=== PATIENT | female | born 1985 | race Caucasian/White ===

== ENCOUNTER 2020-02-01 07:39 | Emergency (ER) | payer MEDICAID ==
[2020-02-01] MEDS ORDERED: HYDROmorphone 1 MG/ML CARPUJECT IVP STA ×2 (07:55→08:55)
[2020-02-01] MEDS ORDERED: ONDANSETRON 4 MG/2 ML VIAL IVP STA (07:55)
[2020-02-01] MEDS ORDERED: SODIUM CHLORIDE 0.9% 1,000 ML IV STA (07:55)
--- NOTE | 2020-02-01 08:00 | ED Physician Documentation ---
PD HPI ABD PAIN - Stated complaint Stated Complaint: ABD PX - History obtained from History obtained from: Patient - Additional information Additional information: 34-year-old woman with history of hysterectomy and left oophorectomy for endo metriosis, occasional heroin use (smokes it, never injects). She also has spinal stenosis and chronic back pain for which she takes gabapentin, Flexeril, ibuprofen, and Tylenol daily. She developed upper abdominal pain last night, gradual in onset. She felt like it was gas, tried Nessa-Farrell twice without relief. Now radiates to the lower abdomen. It is associated with vomiting and diarrhea. No fevers. Review of Systems Ten Systems: 10 systems reviewed and negative Constitutional: denies: Fever, Chills Cardiac: reports: Reviewed and negative Respiratory: reports: Reviewed and negative PD PAST MEDICAL HISTORY - Past Medical History Past Medical History: Yes DUPLEX TRIMMER: Endometriosis Musculoskeletal: Chronic back pain - Past Surgical History Past Surgical History: Yes /DUPLEX TRIMMER: Hysterectomy, Oophrectomy (left, still has right ovary) - Present Medications Home Medications: Ambulatory Orders Medication Instructions Recorded Confirmed Cyclobenzaprine HCl 5 mg PO BID 02/01/20 02/01/20 Dicyclomine HCl 20 mg PO QID PRN #15 tablet 02/01/20 Gabapentin 800 mg PO TID 02/01/20 02/01/20 Ibuprofen [Advil] 400 mg PO BID 02/01/20 02/01/20 Omeprazole 20 mg PO DAILY #30 capsule. 02/01/20 Ondansetron Odt [Zofran] 4 mg TL Q6H PRN #10 tablet 02/01/20 hydrOXYzine pamoate [Hydroxyzine 25 mg PO TID 02/01/20 02/01/20 Pamoate] - Allergies Allergies/Adverse Reactions: Allergies Allergy/AdvReac Type Severity Reaction Status Date / Time No Known Drug Allergies Allergy Verified 02/01/20 07:59 - Social History Does the pt have substance abuse?: Yes Substance Use and Type: Heroin - Family History Family history: reports: Non contributory PD ED PE NORMAL - Vitals Vital signs reviewed: Yes - General General: Alert and oriented X 3, Other (uncomfortable) - HEENT HEENT: PERRL, EOMI - Neck Neck: Supple, no meningeal sign, No bony TTP - Cardiac Cardiac: No murmur, Other (mildly tach, reg) - Respiratory Respiratory: No respiratory distress, Clear bilaterally - Abdomen Abdomen: Other (diminished bowel tones, not absent, Tender RLQ>epigastrium) - Back Back: No CVA TTP, No spinal TTP - Derm Derm: Normal color, Warm and dry - Extremities Extremities: No edema, No calf tenderness / cord - Neuro Neuro: Alert and oriented X 3, Normal speech Results - Vitals Vitals: Vital Signs - 24 hr 02/01/20 02/01/20 02/01/20 08:00 08:23 08:56 Temperature 36.8 C Heart Rate 87 88 89 Respiratory 22 20 18 Rate Blood Pressure 112/57 L 120/69 112/57 L O2 Saturation 98 98 97 Oxygen O2 Source Room air - Labs Labs: Laboratory Tests 02/01/20 02/01/20 02/01/20 07:55 07:55 09:10 WBC 7.1 RBC 4.78 Hgb 14.1 Hct 42.2 MCV 88.3 MCH 29.5 MCHC 33.4 RDW 13.1 Plt Count 266 MPV 9.7 Neut # (Auto) 4.6 Lymph # (Auto) 1.9 Rains # (Auto) 0.4 Eos # (Auto) 0.2 Baso # (Auto) 0.0 Absolute Nucleated RBC 0.00 Nucleated RBC % 0.0 Sodium 139 Potassium 3.8 Chloride 105 Carbon Dioxide 25 Anion Gap 9.0 BUN 10 Creatinine 0.6 Estimated GFR (MDRD) 114 Glucose 106 H Calcium 8.6 Total Bilirubin 0.4 AST 13 ALT 12 Alkaline Phosphatase 47 Total Protein 6.8 Albumin 3.7 Globulin 3.1 Albumin/Globulin Ratio 1.2 Lipase 35 Urine Color YELLOW Urine Clarity CLEAR Urine pH 8.5 H Ur Specific Lamar 1.010 Urine Protein NEGATIVE Urine Glucose (UA) NEGATIVE Urine Ketones NEGATIVE Urine Occult Blood NEGATIVE Urine Nitrite NEGATIVE Urine Bilirubin NEGATIVE Urine Urobilinogen 0.2 (NORMAL) Ur Leukocyte Esterase NEGATIVE Ur Microscopic Review NOT INDICATED Urine Culture Comments NOT INDICATED - Rads (name of study) CT A/P Radiology: EMP read contemporaneously (Consistent with mild or low-grade colitis, appendix not definitively seen but no secondary signs of appendicitis.) PD MEDICAL DECISION MAKING - ED course ED course: 34-year-old woman presents with diffuse abdominal pain, some concern for appendicitis based on exam but CT without signs of appendicitis, also white count mid normal. Feeling better after divided doses of meds and especially got some relief with a GI cocktail suggesting some element of gastritis on top of the mild colitis seen on CT. Departure - Departure Disposition: 01 Home, Self Care Clinical Impression: Gastroenteritis Condition: Good Record reviewed to determine appropriate education?: Yes Instructions: ED Gastroenteritis Viral Prescriptions: Dicyclomine HCl 20 mg PO QID PRN #15 tablet PRN Reason: Abdominal Pain Omeprazole 20 mg PO DAILY #30 capsule. Ondansetron Odt [Zofran] 4 mg TL Q6H PRN #10 tablet PRN Reason: Nausea / Vomiting Comments: Return in 24 hours if not better, anytime if worsening. If symptoms are persistent or recurrent talk with your doctor about upper and lower endoscopies for reevaluation.
[2020-02-01 08:03] LABS: BASOPHILS % (AUTO) 0.4 %; EOSINOPHILS # (AUTO) 0.2 10^3/uL (0.0-0.7); EOSINOPHILS % (AUTO) 2.7 %; HGB - HEMOGLOBIN 14.1 g/dL (12.0-16.0); LYMPHOCYTES # (AUTO) 1.9 10^3/uL (1.5-3.5); LYMPHOCYTES % (AUTO) 26.7 %; MEAN CORPUSCULAR HEMOGLOBIN 29.5 pg (27.0-31.0); MEAN CORPUSCULAR HGB CONC 33.4 g/dL (32.0-36.0); MEAN CORPUSCULAR VOLUME 88.3 fL (81.0-99.0); MEAN PLATELET VOLUME 9.7 fL (7.9-10.8); MONOCYTES # (AUTO) 0.4 10^3/uL (0.0-1.0); NEUTROPHILS # (AUTO) 4.6 10^3/uL (1.5-6.6); NEUTROPHILS % (AUTO) 63.9 %; PLT - PLATELET COUNT 266 10^3/uL (130-450); RED BLOOD COUNT 4.78 10^6/uL (4.20-5.40); RED CELL DISTRIBUTION WIDTH 13.1 % (12.0-15.0); WHITE BLOOD COUNT 7.1 x10^3/uL (4.8-10.8)
[2020-02-01 08:23] LABS: ALBUMIN 3.7 g/dL (3.2-5.5); ALBUMIN/GLOBULIN RATIO 1.2 (1.0-2.2); BILIRUBIN,TOTAL 0.4 mg/dL (0.2-1.0); CALCIUM 8.6 mg/dL (8.5-10.3); CREATININE 0.6 mg/dL (0.4-1.0); TOTAL PROTEIN 6.8 g/dL (6.7-8.2)
[2020-02-01] MEDS ORDERED: IOVERSOL 320 100 ML VIAL IVP ONE ×2 (08:32→08:50)
--- NOTE | 2020-02-01 09:06 | CT Report ---
PROCEDURE: Abdomen/Pelvis W INDICATIONS: IV only, upper and RLQ pain CONTRAST: IV CONTRAST: Optiray 320 ml: 100 PO CONTRAST: *NO PO CONTRAST TECHNIQUE: After the administration of 100 mL of intravenous contrast, 5 mm thick sections acquired from the jessica phragms to the symphysis. 5 mm thick coronal and sagittal reformats were acquired. For radiation do se reduction, the following was used: automated exposure control, adjustment of mA and/or kV accordi ng to patient size. COMPARISON: None. FINDINGS: Image quality: Excellent. ABDOMEN: Lung bases: Lung bases are clear. Heart size is normal. Solid organs: Liver and spleen are normal in size and enhancement. Gallbladder is decompressed but otherwise unremarkable. Biliary system is non dilated. Pancreas enhances normally. No adrenal nodu les. Kidneys demonstrate normal size and enhancement, without hydronephrosis. Peritoneum and bowel: There is mild circumferential bowel wall thickening of the distal transverse c olon and descending colon with subtle pericolonic stranding. The appendix is not definitively visuali zed, but no secondary findings for acute inflammation are noted in the right lower quadrant. Remainde r of the bowel loops demonstrate normal wall thickness and caliber. No free fluid or air. Nodes and vessels: No retroperitoneal or mesenteric adenopathy by size criteria. Aorta and inferior vena cava are normal in size. Miscellaneous: No ventral hernias. Small fat-containing umbilical hernia without acute inflammation. PELVIS: Genitourinary: Bladder wall thickness is normal. Right ovarian cyst/follicle. Miscellaneous: No inguinal hernias or adenopathy. Bones: No suspicious bony lesions. No vertebral body compression fractures. IMPRESSION: 1. Minimal circumferential bowel wall thickening of the distal transverse colon and descending colon with subtle pericolonic stranding suspected to represent colitis either inflammatory versus infectiou s in etiology. Otherwise, no acute abnormalities identified in the abdomen or pelvis. 2. The appendix is not definitively visualized; however, no secondary findings for acute inflammation are noted in the right lower quadrant. Reviewed by: Nate Crum MD on 02/01/2020 9:05 AM PDT Approved by: Nate Crum MD on 02/01/2020 9:05 AM PDT Station ID: [id number]
[2020-02-01 09:25] LABS: BILIRUBIN,URINE NEGATIVE (NEGATIVE); CLARITY,URINE CLEAR (CLEAR); GLUCOSE, URINE (UA) NEGATIVE (NEGATIVE); KETONES,URINE (UA) NEGATIVE (NEGATIVE); LEUKOCYTE ESTERASE, URINE NEGATIVE (NEGATIVE); NITRITE,URINE NEGATIVE (NEGATIVE); OCCULT BLOOD,URINE NEGATIVE (NEGATIVE); PH,URINE 8.5 PH (5.0-7.5); PROTEIN,URINE NEGATIVE (NEGATIVE); UROBILINOGEN,URINE 0.2 (NORMAL) E.U./dL (NORMAL)
[2020-02-01] MEDS ORDERED: LIDOCAINE VISCOUS 2% 15 ML UDC MM STA (09:30)
[2020-02-01] MEDS ORDERED: MAG HYDROX/AL HYDROX/SIMETH 30 ML UDC PO STA (09:30)
[2020-02-01] MEDS ORDERED: PANTOPRAZOLE 40 MG VIAL IVP STA (09:56)
[2020-02-01 13:42] VITALS: BP 109/68
== END 2020-02-01 10:11 | disposition home or self-care (01) ==
LOC: ED 07:39
DX: K52.9 Noninfective gastroenteritis and colitis, unspecified (principal); M54.9 Dorsalgia, unspecified; G89.29 Other chronic pain
CPT/HCPCS: 36415; 74177; 80053; 81003; 83690; 85025; 96361; 96374; 96375; 96376; 99284; A9270; J1170; Q9967; 81001; 87086